=== PATIENT | female | born 2000 ===

== ENCOUNTER 2021-09-04 11:31 | Inpatient (IN) | payer OTHER ==
[~2021-09-04] VITALS: Ht 167.6 cm; Wt 70.8 kg
[2021-09-05] MEDS ORDERED: PRENATAL TABLE1 EAC3 PO (02:25)
[2021-09-05] MEDS ORDERED: IRON325 MG PO (02:25)
== END 2021-09-07 13:55 | disposition home or self-care (01) | DRG 807 ==
LOC: OBS/DEL 11:31 → LDR 09-05 01:32 → OB/GYN 09-05 07:25
PROVIDERS: ADMIT Specialist; ATTEND Specialist
PROC: 10E0XZZ Delivery of Products of Conception, External Approach (ICD-10-PCS; principal; 2021-09-05)
PROC: 0KQM0ZZ Repair Perineum Muscle, Open Approach (ICD-10-PCS; 2021-09-05)
PROC: 4A1HXCZ Monitoring of Products of Conception, Cardiac Rate, External Approach (ICD-10-PCS; 2021-09-05)
DX: O70.1 Second degree perineal laceration during delivery (principal); Z37.0 Single live birth; Z3A.38 38 weeks gestation of pregnancy; Z20.822 Contact with and (suspected) exposure to COVID-19